=== PATIENT | male | born 1955 | race Hispanic/Latino ===

== ENCOUNTER 2020-05-14 08:39 | Outpatient (CLI) | payer MEDICARE ==
--- NOTE | 2020-05-14 09:26 | RAD ---
EXAM: XR Knee Lt 3 View PROVIDED CLINICAL HISTORY: Pain COMPARISON: None FINDINGS: There is no evidence for fracture or other acute osseous abnormality. Tricompartmental osteophyte for mation is demonstrated with advanced medial femorotibial joint space narrowing. Associated mild genu varum. Joint spaces appear otherwise preserved. IMPRESSION: Advanced degenerative arthrosis of the left knee.
--- NOTE | 2020-05-14 09:28 | RAD ---
EXAM: XR Knee Rt 3 View PROVIDED CLINICAL HISTORY: Pain COMPARISON: None FINDINGS: Tricompartmental osteophyte formation is demonstrated with mild medial femorotibial joint space narro wing. Chondrocalcinosis is demonstrated. Sequela of prior healed fibular fracture. No evidence for an acute fracture or other acute osseous abnormality. Alignment appears anatomic. IMPRESSION: Degenerative arthrosis of the right knee.
[2020-05-14 11:02] LABS: #Eosinphils 0.2 thou/uL (0.0-0.7); #Lymphocytes 1.9 thou/uL (1.20-3.40); #Monocytes 0.7 thou/uL (0.11-0.59); #Neutrophils 4.8 thou/uL (1.40-6.50); %Basophils 0.6 % (0.0-1.0); %Eosinophils 2.1 % (0.0-10.0); %Lymphocytes 24.7 % (21.0-51.0); %Monocytes 9.2 % (0.0-10.0); %Neutrophils 63.3 % (42.0-75.0); Hemoglobin 14.2 g/dL (14.0-18.0); Mean Corpuscular HGB CONC 33.3 g/dL (32.0-36.0); Mean Corpuscular Hemoglobin 28.2 pg (27.0-31.0); Mean Corpuscular Volume 84.8 fL (78.0-98.0); Platelet Count 224 thou/uL (130-400); RBC Distribution Width 13.2 % (11.5-14.5); Red Blood Cell (RBC) Count 5.03 mill/uL (4.70-6.10); White Blood Cell (WBC) Count 7.5 thou/uL (4.8-10.8)
[2020-05-14 11:34] LABS: ALT (SGPT) 21 U/L (8-55); AST (SGOT) 19 U/L (5-34); Albumin 4.5 g/dL (3.4-4.8); Alkaline Phosphatase 98 U/L (40-110); Anion Gap 13 mmol/L (10-20); BUN (Urea Nitrogen) 21 mg/dL (8.4-25.7); Bilirubin, Total 0.6 mg/dL (0.2-1.2); Calc. Creatinine Clearance 0 mL/min (70-130); Calcium 9.1 mg/dL (7.8-10.44); Carbon Dioxide 25 mmol/L (23-31); Chloride 108 mmol/L (98-107); Globulin 2.6 g/dL (2.4-3.5); Glucose 108 mg/dL (80-115); Potassium 4.2 mmol/L (3.5-5.1); Protein, Total 7.1 g/dL (5.8-8.1); Sodium 142 mmol/L (136-145); Uric Acid 6.2 mg/dL (3.5-7.2)
[2020-05-14 11:49] LABS: Free T4 (Free Thyroxine) 1.03 ng/dL (0.70-1.48)
[2020-05-14 11:50] LABS: Thyroid Stimulating Hormone 1.7332 uIU/mL (0.35-4.94)
[2020-05-14 11:51] LABS: PSA-Asymptomatic (SCREENING) 1.17 ng/mL (0-4.0)
== END 2020-05-14 08:40 | disposition home or self-care (01) ==
LOC: SCSRAD 08:39
PROVIDERS: ATTEND Family Medicine
DX: M17.0 Bilateral primary osteoarthritis of knee (principal); I10 Essential (primary) hypertension; R60.0 Localized edema; Z12.5 Encounter for screening for malignant neoplasm of prostate
CPT/HCPCS: 36415; 71046; 80053; 83880; 84439; 84443; 84550; 85025; G0103

== ENCOUNTER 2022-01-11 10:14 | Outpatient (CLI) | payer MEDICARE | END 2022-01-11 10:15 | disposition home or self-care (01) | LOC: SCSRAD 10:14 | PROVIDERS: ATTEND Family Medicine | DX: M79.671 Pain in right foot (principal) ==